=== PATIENT | female | born 1970 | race African-American/Black ===

== ENCOUNTER 2016-06-20 10:51 | Observation (INO) | payer BC ==
--- NOTE | ~2016-06-20 | OP ---
Record Of Operation [facility] [address] [facility] [place]. [address] NAME: KOFI ECHEVERRIA : 70 STATUS : DIS Lon PAT#: [id number] AGE: 46 ADM/REG DATE : 06/20/16 MR#: [id number] REPORT SERV DATE: 06/21/16 DICTATED BY: CORINNE IRENE DATE: 06/21/16 REPORT STATUS : Draft TRANSCRIBED BY: MODL DATE: 06/21/16 DATE OF PROCEDURE: 06/21/2016 ATTENDING PHYSICIAN: Corinne Irene M.D. TITLE OF OPERATION: Cystourethroscopy, right retrograde pyelogram, right ureteroscopy, and right ureteral stent placement. PREOPERATIVE DIAGNOSIS: Right ureteral stone. POSTOPERATIVE DIAGNOSIS: Right ureteral stone. INDICATIONS: Mrs. Echeverria is a 46-year-old female with a history of a right ureteral stone. She became asymptomatic and had a normal ultrasound after initially presenting. Therefore the assumption was made that the stone had passed. However, she presented back to the ER with right flank pain and found to have a ureteral stone in the distal ureter. She was admitted to the hospital and taken to the operating room for ureteroscopy. Of note, the stone is not visible on KUB. ANESTHESIA: General. COMPLICATIONS: None. IMPLANTS: 6 x 22 right ureteral stent. SPECIMENS: None. NARRATIVE: The patient was brought to the operating room, identified by her wristband. General anesthesia was induced and Ancef was given for preoperative antibiotics. She was placed in the dorsal lithotomy position and prepped and draped in a sterile fashion. A cystoscope was placed into her urethra and into her bladder. The bladder was inspected and found to be normal. A right Sensor wire was placed into the distal right ureter. There was resistance met at the level of the stone. At this time, the wire was advanced up to the kidney. A semi-rigid ureteroscope was placed up to the level of the stone. However, the ureter was very narrow and the stone seemed to be impacted. I could not get a good look at the stone now to adequately treat the stone. At this time, decision was made to place a 6 x 24 ureteral stent. The wire was placed back up to the level of the renal pelvis. A retrograde pyelogram was shot which showed normal renal anatomy. A 6 x 22 ureteral stent was placed over the wire, this was somewhat difficult given the stone taking up the majority of the lumen of the ureter. The patient was then awoken from anesthesia and transferred to the recovery room in stable condition. I will plan on repeating this procedure in a week. Hopefully the ureter will have dilated by that time. ALANA/AMIE Record Of Operation [facility] [address] [place]. [address] NAME: KOFI ECHEVERRIA : 70 STATUS : DIS Lon PAT#: [id number] AGE: 46 ADM/REG DATE : 06/20/16 MR#: [id number] REPORT SERV DATE: 06/21/16 DICTATED BY: CORINNE IRENE DATE: 06/21/16 REPORT STATUS : Draft TRANSCRIBED BY: AMIE DATE: 06/21/16 Corinne Irene MD / [id number] CC: MD Jesusita Polo M.D.
[2016-06-20 05:56] LABS: BASOPHILS 0.2 %; BASOPHILS ABSOLUTE 0.02 10/3/uL (0.0-0.16); EOSINOPHILS 0.9 %; EOSINOPHILS ABSOLUTE 0.09 10/3/uL (0.0-0.53); ER CBC TAT 0 Hrs 11 Mins; HEMATOCRIT 37.2 % (36.0-48.0); HEMOGLOBIN 12.1 g/dL (12.0-16.0); IMMATURE GRANULOCYTES 0.2 %; IMMATURE GRANULOCYTES ABSOLUTE 0.02 10/3/uL (0.0-0.11); LYMPHOCYTES 26.9 %; LYMPHOCYTES ABSOLUTE 2.68 10/3/uL (0.67-4.30); MEAN CORPUS HGB CONC 32.5 g/dL (32.0-36.0); MEAN CORPUSCULAR HEMOGLOB 24.9 pg (26.0-34.0); MEAN CORPUSCULAR VOLUME 76.7 fL (80-100); MEAN PLATELET VOLUME 10.6 fL (9.2-13.0); MONOCYTES 5.6 %; MONOCYTES ABSOLUTE 0.56 10/3/uL (0.21-1.20); NEUTROPHILS 66.2 %; NEUTROPHILS ABSOLUTE 6.58 10/3/uL (2.02-8.40); PLATELET COUNT 362 10/3/uL (150-400); RED CELL COUNT 4.85 10/6/uL (4.0-5.6)
[2016-06-20 05:57] LABS: MANUAL DIFF NO %
[2016-06-20 06:14] LABS: CALCIUM, SERUM 9.5 MG/DL (8.5-10.4); CHLORIDE, SERUM 102 MMOL/L (96-112); CO2 (CARBON DIOXIDE) 28 MMOL/L (24-34); CREATININE 1.09 MG/DL (0.55-1.02); GFR AFRICAN AMERICAN 71 ML/MIN (>=60); GFR NON AFRICAN AMERICAN 61 ML/MIN (>=60); SODIUM, SERUM 143 MMOL/L (135-148)
[2016-06-20 06:15] LABS: BUN (BLOOD UREA NITROGEN) 14 MG/DL (6-23); GLUCOSE, SERUM 144 MG/DL (60-99); POTASSIUM, SERUM 2.8 MMOL/L (3.5-5.3)
[2016-06-20 07:48] LABS: WBC (NOT ORDERED) (RFLEX) 0 (0-5)
[2016-06-20 08:05] LABS: ASCORBIC ACID (UR NOT ORDER) NEG (NEG); BILIRUBIN, URINE NEGATIVE (NEG); KETONE, URINE 20 MG/DL (NEG); LEUKOCYTE ESTERASE(NOT OR NEG (NEG); NITRITE (URINE) NEG (NEG)
[~2016-06-20 10:51] MED LIST: ACCUNE1 INH; BUTRANS1 EACH TOP; COMBIVENT INH; CYMBALTA60 PO; HYZAAR 100/25 T1 TAB PO; L20 PO; LORT7 PO; MULTIPLE VIT PO; NORCO1 TAB PO; PR25 PO; PROAIR HFA INH; PROVENTSOL INH; SKELAXIN8 PO; TOPAMAX100 PO; TOPAMAX25 PO; TRAZ50 PO; ZANAFLEX2 MG PO; ZYRTEC ALLGY10 MG PO; [UNRECOGNIZED DRUG - OTHER] SC
[2016-06-20] MEDS ORDERED: HYZAAR 100/25 T1 TAB PO (13:51)
[2016-06-20] MEDS ORDERED: GLUCOPHAGE1000 MG PO (13:51)
[2016-06-20] MEDS ORDERED: VICTOZA18 MG/3 ML SC (13:51)
[2016-06-20] MEDS ORDERED: ZYRTEC ALLGY10 MG PO (13:52)
[2016-06-20] MEDS ORDERED: CYMBALTA30 PO (13:52)
[2016-06-20] MEDS ORDERED: TRAZ50 PO (13:52)
[2016-06-20] MEDS ORDERED: PROAIR HFA INH (13:52)
[2016-06-20] MEDS ORDERED: ALBUTEROL0.083 % INH (13:53)
[2016-06-20] MEDS ORDERED: DOSTINEX PO (13:53)
[2016-06-22] MEDS ORDERED: MACROBID PO (13:21)
[2016-06-22] MEDS ORDERED: DSS PO (13:21)
[2016-06-22] MEDS ORDERED: PCET PO (13:22)
[2016-06-22] MEDS ORDERED: [UNRECOGNIZED DRUG - CODE] PO (13:23)
[2016-06-22] MEDS ORDERED: TRULICITY0.75 MG/0. SQ (13:24)
[2016-06-22] MEDS ORDERED: BEN25 PO (13:46)
== END 2016-06-21 12:45 | disposition home or self-care (01) ==
LOC: ER 10:51 → CDU1 14:28 → CDU2 16:32 → SDC/OF 06-21 09:58
PROVIDERS: Specialist; Urology
PROC: 0T768DZ Dilation of Right Ureter with Intraluminal Device, Via Natural or Artificial Opening Endoscopic (ICD-10-PCS; principal; 2016-06-21 09:45)
DX: N20.1 Calculus of ureter (principal); G43.909 Migraine, unspecified, not intractable, without status migrainosus; I10 Essential (primary) hypertension; J45.909 Unspecified asthma, uncomplicated; E66.9 Obesity, unspecified; K21.9 Gastro-esophageal reflux disease without esophagitis; E11.9 Type 2 diabetes mellitus without complications; Z88.0 Allergy status to penicillin; Z88.2 Allergy status to sulfonamides; Z88.8 Allergy status to other drugs, medicaments and biological substances
CPT/HCPCS: 74000; 74176; 74420; 80048; 81001; 82962; 85025; 96374; 96375; 99285; A9270-GY; C1758; C1769; C2617; G0378; J0690; J1170; J2250; J2370; J2405; J2710; J3010; Q9967

== ENCOUNTER 2016-06-27 07:40 | Day surgery (SDC) | payer BC ==
--- NOTE | ~2016-06-27 | OP ---
Record Of Operation [address] [facility]. [address] NAME: KOFI ECHEVERRIA : 70 STATUS : REG [facility] PAT#: [id number] AGE: 46 ADM/REG DATE : 06/27/16 MR#: [id number] REPORT SERV DATE: 06/27/16 DICTATED BY: CORINNE IRENE DATE: 06/27/16 REPORT STATUS : Draft TRANSCRIBED BY: MODL DATE: 06/27/16 DATE OF PROCEDURE: 06/27/2016 ATTENDING PHYSICIAN: Corinne Irene M.D. TITLE OF OPERATION: Cystourethroscopy, right ureteral stent removal, right retrograde pyelogram, right ureteroscopy with laser lithotripsy and basket stone extraction, and placement of a 6 x 22 right ureteral stent. PREOPERATIVE DIAGNOSIS: Right ureteral stone. POSTOPERATIVE DIAGNOSIS: Right ureteral stone. INDICATIONS: Ms. Echeverria is a 46-year-old female with a history of a 5 mm right ureteral stone. She was taken to the OR last week for cystoscopy and stent placement. Her ureter was tight, so ureteroscopy could not be performed. She is here today for completion ureteroscopy. ANESTHESIA: General. COMPLICATIONS: None. IMPLANT: 6 x 22 right ureteral stent. SPECIMEN: Stones for analysis. NARRATIVE: The patient was brought to the operating room, identified by her wristband. General anesthesia was induced and Ancef was given for preoperative antibiotics. She was placed in the dorsal lithotomy position and prepped and draped in a sterile fashion. A cystoscope was placed into her urethra and into her bladder. The bladder was inspected. There was no mucosal lesions or tumors. A stent was seen emanating from her right ureteral orifice. It was grasped with a flexible grasper and removed her meatus. The stent was cannulated with a Sensor wire. This wire was placed up into her kidney. The stent was removed. A rigid ureteroscope was placed alongside the wire into the distal ureter. Distal ureter was somewhat edematous from the prior procedure as well as the stone. There was a navigated area and just proximal to it was the ureteral stone. The ureteral stone was displaced into a dilated more normal-appearing ureter. Using a 365 micron holmium laser fiber, the stone was fragmented into numerous small pieces. These pieces were sequentially grasped and removed with a 1.9 Nitinol basket. At the end of the procedure, there were no fragments left in the ureter. Retrograde pyelogram was shot which showed no extravasation and a normal ureter and nondilated kidney. A Sensor wire was placed back up to the level of the kidney. A 6 x 22 ureteral stent was placed over the wire and the proximal coil was found to be in the renal pelvis under fluoroscopic guidance. Distal coil was in the bladder under direct vision. The stone fragments in the bladder were then removed. They were sent to pathology for analysis. The patient was awoken from anesthesia and transferred to the recovery room in stable condition. I will see her back in two weeks' time for a stent Record Of Operation [address] [place]. [address] NAME: KOFI ECHEVERRIA : 70 STATUS : REG [facility] [place] PAT#: [id number] AGE: 46 ADM/REG DATE : 06/27/16 MR#: [id number] REPORT SERV DATE: 06/27/16 DICTATED BY: CORINNE IRENE DATE: 06/27/16 REPORT STATUS : Draft TRANSCRIBED BY: AMIE DATE: 06/27/16 removal in the clinic. ALANA/AMIE Corinne Irene MD / [id number] CC: MD Jesusita Polo M.D.
[~2016-06-27 07:40] MED LIST changes: +ALBUTEROL0.083 % INH; +BEN25 PO; +CYMBALTA30 PO; +DOSTINEX PO; +DSS PO; +GLUCOPHAGE1000 MG PO; +MACROBID PO; +PCET PO; +TRULICITY0.75 MG/0. SQ; +VICTOZA18 MG/3 ML SC; +[UNRECOGNIZED DRUG - CODE] PO
[2016-06-27 09:47] LABS: CHLORIDE, SERUM 100 MMOL/L (96-112); CO2 (CARBON DIOXIDE) 29 MMOL/L (24-34); CREATININE 0.88 MG/DL (0.55-1.02); GFR AFRICAN AMERICAN 91 ML/MIN (>=60); GFR NON AFRICAN AMERICAN 79 ML/MIN (>=60); SODIUM, SERUM 138 MMOL/L (135-148)
[2016-06-27 09:49] LABS: BUN (BLOOD UREA NITROGEN) 7 MG/DL (6-23); GLUCOSE, SERUM 103 MG/DL (60-99); POTASSIUM, SERUM 3.4 MMOL/L (3.5-5.3)
[2016-07-03 19:20] LABS: STONE COMPOSITION TWO DNR (())
== END 2016-06-27 13:52 | disposition home or self-care (01) ==
LOC: SDC 07:40
PROVIDERS: Urology
PROC: 0T768DZ Dilation of Right Ureter with Intraluminal Device, Via Natural or Artificial Opening Endoscopic (ICD-10-PCS; 2016-06-27)
PROC: 0TF68ZZ Fragmentation in Right Ureter, Via Natural or Artificial Opening Endoscopic (ICD-10-PCS; principal; 2016-06-27 09:00)
DX: N20.1 Calculus of ureter (principal); K21.9 Gastro-esophageal reflux disease without esophagitis; J45.909 Unspecified asthma, uncomplicated; M79.7 Fibromyalgia; G47.33 Obstructive sleep apnea (adult) (pediatric); E11.9 Type 2 diabetes mellitus without complications; Z88.0 Allergy status to penicillin; Z88.2 Allergy status to sulfonamides; Z79.84 Long term (current) use of oral hypoglycemic drugs; G43.909 Migraine, unspecified, not intractable, without status migrainosus; Z88.1 Allergy status to other antibiotic agents; Z79.899 Other long term (current) drug therapy; Z90.711 Acquired absence of uterus with remaining cervical stump; Z98.890 Other specified postprocedural states
CPT/HCPCS: 74420; 80048; 82365; 82962; 93005; A9270-GY; C1758; C2617; J0690; J1170; J2250; J2405; J2710; J3010; Q9967